=== PATIENT | male | born 1980 | race Two or more races ===

== ENCOUNTER → 2019-12-03 | Outpatient (CLI) | payer OTHER ==
--- NOTE | 2019-12-03 16:29 | KCIC ---
EXAMINATION: MRI lower extremity joint without, left INDICATIONS: Bilateral hip pain, left greater than right. TECHNIQUE: Multiplanar multisequence MRI of the left hip was obtained without contrast. COMPARISON: None. FINDINGS: Bones and cartilage: There is serpiginous T2 hyperintense signal in the subchondral left femoral head anteriorly, compatible with osteonecrosis. The area of abnormality measures 3.2 x 3.0 x 0.8 cm (coronal x sagittal x CC) and involves at least 50 percent of the weightbearing surface. There is some articular surface irregularity without significant depression. No surrounding marrow edema There is scattered partial-thickness cartilage loss of the left hip, greatest anteriorly and laterally. Femoral head osteophytes or osseous bumps noted. Small similar-appearing area of subchondral T2 hyperintense signal in the right femoral head measuring approximately 7 x 7 cm on coronal images is suspicious for osteonecrosis of the right hip. This involves much less of the weightbearing surface. No articular surface irregularity. No surrounding marrow edema. Sacroiliac joints appear normal. Labrum: There is degenerative labral tearing. Muscles, tendons, and bursae: Gluteal, iliopsoas, adductor, rectus femoris, and hamstrings tendon origins are intact. No bursitis. Muscles are normal. Other: No joint effusion. IMPRESSION: 1. Osteonecrosis of the left femoral head involving at least 50 percent of the weight-bearing surface anteriorly. There is articular surface irregularity without significant depression. No surrounding marrow edema. 2. Much smaller area of osteonecrosis in the right femoral head without articular surface irregularity or marrow edema. 3. Mild cartilage loss of the hips. 4. Degenerative left labral tearing. Electronically signed by: Promise Mendez MD (12/03/2019 4:26 PM) [place] [id number]
== END | disposition home or self-care (01) ==
LOC: KCIC MRI 13:46
PROVIDERS: ATTEND Physician Assistant Medical
DX: S43.432A Superior glenoid labrum lesion of left shoulder, initial encounter (principal); M87.852 Other osteonecrosis, left femur; X58.XXXA Exposure to other specified factors, initial encounter; Y93.89 Activity, other specified; Y92.89 Other specified places as the place of occurrence of the external cause; Y99.8 Other external cause status
CPT/HCPCS: 73721